=== PATIENT | male | born 1960 | race Caucasian/White ===

== ENCOUNTER 2024-05-18 14:25 | Inpatient (IN) | payer MEDICARE, MEDICAID ==
[~2024-05-18] VITALS: Ht 172.7 cm; Wt 70.3 kg
[~2024-05-18 14:25] MED LIST: AMLO10TA80 PO
[2024-05-18 14:32] VITALS: O2SAT 99
[2024-05-18] MEDS: LACTATED RINGERS 1,000 ML IV SCH (15:12)
[2024-05-18] MEDS: MORPHINE SULFATE 4 MG/ML INJ (FOR IV/IM USE) IV ONE (15:12)
[2024-05-18 15:30] LABS: MEAN CORPUSCULAR HGB CONC 31.8 g/dL (31.0-37.0); MEAN CORPUSCULAR VOLUME 88.1 fL (80.0-94.0); MEAN PLATELET VOLUME 6.5 fl (7.4-10.4); PLATELET 381 x1000/uL (130-400); RED BLOOD CELL COUNT 2.84 mill/uL (4.7-6.1); WHITE BLOOD COUNT 14.2 x1000/uL (4.5-11.0)
[2024-05-18 15:33] LABS: CARBON DIOXIDE 22 mEq/L (21-32); CHLORIDE 104 mEq/L (98-107); POTASSIUM 3.8 mEq/L (3.5-5.1); SODIUM 133 mEq/L (136-145)
[2024-05-18 15:34] LABS: CALCIUM 8.3 mg/dL (8.7-10.4)
[2024-05-18 15:38] LABS: GLUCOSE 129 mg/dL (70-105)
[2024-05-18 15:39] LABS: CREATININE 1.4 mg/dL (0.6-1.3); UREA NITROGEN BLOOD 36 mg/dL (9-23)
[2024-05-18 15:40] LABS: ALANINE AMINOTRANSFERASE 18 IU/L (10-49); ALBUMIN 2.7 g/dL (3.2-4.8); ASPARTATE AMINOTRANSFERASE 25 IU/L (<34); DIFFERENTIAL COMMENT 1
[2024-05-18 15:41] LABS: BILIRUBIN TOTAL 0.3 mg/dL (0.1-1.0); PROTEIN TOTAL 6.5 g/dL (6.0-8.3)
[2024-05-18 16:43] LABS: PLATELET ESTIMATE NORMAL
[2024-05-18] MEDS ORDERED: CEFEPIME 2GM IN DEXT 5% 100ML IV ONE ×2 (17:00→17:30)
[2024-05-18] MEDS ORDERED: CEFEPIME 2GM/100ML 100 ML IV NR (17:00)
[2024-05-18] MEDS ORDERED: ENOXAPARIN 60MG/0.6ML SYR SUBCUT ONE (17:15)
[2024-05-18] MEDS ORDERED: CLONIDINE 0.1MG TABLET PO PRN (17:30)
[2024-05-18] MEDS ORDERED: IPRATROPIUM/ALBUTEROL 0.5-3(2.5)MG/3ML NEB HHN PRN (17:30)
[2024-05-18] MEDS ORDERED: GUAIFENESIN 200MG/10ML SUGAR FREE UDC PO PRN (17:30)
[2024-05-18] MEDS ORDERED: ACETAMINOPHEN 325MG TABLET PO PRN ×2 (17:30)
[2024-05-18] MEDS ORDERED: ONDANSETRON HCL 4MG/2ML INJ IV PRN (17:30)
[2024-05-18] MEDS ORDERED: DOCUSATE SODIUM 100MG CAPSULE PO PRN (17:30)
[2024-05-18] MEDS ORDERED: MAGNESIUM/ALUMINUM HYDROXIDE/SIMETHICONE 30ML UDC PO PRN (17:30)
[2024-05-18] MEDS ORDERED: DEXTROSE 50% WATER 50ML SYRINGE IV PRN (17:30)
[2024-05-18] MEDS ORDERED: NALOXONE HCL 0.4MG/ML VIAL IV PRN (18:00)
[2024-05-18] MEDS: ENOXAPARIN 60MG/0.6ML SYR SUBCUT SCH (18:00)
[2024-05-18 18:21] LABS: IRON 26 ug/dL (65-175)
[2024-05-18 18:24] LABS: TOTAL IRON BINDING CAPACITY 290 ug/dl (250-425)
[2024-05-18 18:47] LABS: INR 1.1; PARTIAL THROMBOPLASTIN TIME 32.5 sec (23.4-31.0); PROTHROMBIN TIME 12.3 sec (9.6-11.0)
[2024-05-18 19:03] LABS: LACTIC ACID 2.1 mmol/L (0.4-2.0)
[2024-05-18] MEDS: THIAMINE HCL 100MG TABLET PO SCH (19:45)
[2024-05-18] MEDS: INSULIN LISPRO 100 UNITS/ML SUBCUT SCH (19:45)
[2024-05-18] MEDS: BLOOD SUGAR DIAGNOSTIC STRIP TEST SCH (21:00)
[2024-05-18] MEDS: CEFEPIME 1GM/50ML 50 ML IV SCH (21:30)
[2024-05-18] MEDS: DEXT 5%/LACTATED RINGERS 1,000 ML IV SCH (22:00)
[2024-05-18] MEDS: FAMOTIDINE 20MG TABLET PO SCH (22:00)
[2024-05-18] MEDS: IOHEXOL-300 100 ML BOTTLE ONE (23:35)
[2024-05-19 03:19] LABS: CREATINE KINASE MB FRACTION < 0.5 ng/mL (0.5-3.6)
[2024-05-19 03:32] LABS: CREATINE KINASE < 15 IU/L (46-171); TROPONIN I HIGH SENSITIVITY < 4 ng/L (3.0-53)
[2024-05-19 03:50] VITALS: BP 114/68; PULSE 80; RESP 18; TEMP 36.696
[2024-05-19] MEDS ORDERED: AMLO10TA80 MT (04:43)
[2024-05-19] MEDS: ENOXAPARIN 60MG/0.6ML SYR SUBCUT SCH (05:34)
[2024-05-19 07:06] LABS: CREATINE KINASE MB FRACTION < 0.5 ng/mL (0.5-3.6)
[2024-05-19 07:12] LABS: CARBON DIOXIDE 22 mEq/L (21-32); CHLORIDE 106 mEq/L (98-107); POTASSIUM 4.4 mEq/L (3.5-5.1); SODIUM 134 mEq/L (136-145)
[2024-05-19 07:14] LABS: CALCIUM 8.4 mg/dL (8.7-10.4); CREATINE KINASE < 15 IU/L (46-171); TROPONIN I HIGH SENSITIVITY < 4 ng/L (3.0-53)
[2024-05-19 07:17] LABS: THYROID STIMULATING HORMONE 3.59 uIU/mL (0.55-4.78)
[2024-05-19 07:18] LABS: GLUCOSE 165 mg/dL (70-105)
[2024-05-19 07:19] LABS: LDL CHOLESTEROL 61 mg/dL (5-100); TRIGLYCERIDE 164 mg/dL (0-150); UREA NITROGEN BLOOD 33 mg/dL (9-23)
[2024-05-19 07:20] LABS: CHOLESTEROL 110 mg/dL (<200); HDL CHOLESTEROL < 20 mg/dL (>55)
[2024-05-19 07:21] LABS: PHOSPHORUS 4.7 mg/dL (2.5-4.9)
[2024-05-19 07:26] LABS: BASOPHILS % 0.2 % (0.0-2.0); EOSINOPHILS % 0.1 % (0.0-5.0); HEMATOCRIT. 23.2 % (42.0-52.0); HEMOGLOBIN. 7.4 g/dL (14.0-18.0); LYMPHOCYTES % 7.2 % (20.0-50.0); MEAN CORPUSCULAR VOLUME 87.5 fL (80.0-94.0); MEAN PLATELET VOLUME 6.8 fl (7.4-10.4); MONOCYTES % 6.5 % (2.0-8.0); PLATELET 407 x1000/uL (130-400); RED BLOOD CELL COUNT 2.65 mill/uL (4.7-6.1); RED CELL DISTRIBUTION WIDTH 15.4 % (11.6-14.6); WHITE BLOOD COUNT 16.8 x1000/uL (4.5-11.0)
[2024-05-19 08:00] VITALS: BP 123/66; PULSE 102; RESP 15; TEMP 37.00296; O2SAT 99
[2024-05-19] MEDS: MULTIVITAMINS,THER W-MINERALS TABLET PO SCH (09:39)
[2024-05-19] MEDS: FOLIC ACID 1MG TABLET PO SCH (09:39)
[2024-05-19] MEDS: AMLODIPINE 2.5MG TABLET PO SCH (09:39)
[2024-05-19] MEDS: FERROUS SULFATE 325MG TABLET PO SCH (09:40)
[2024-05-19] MEDS: MORPHINE SULFATE 2 MG/ML INJ (NOT FOR IM USE) IV PRN (09:40)
[2024-05-19 12:00] VITALS: BP 120/64; PULSE 97; RESP 17; TEMP 36.89184; O2SAT 100
[2024-05-19] MEDS: FAMOTIDINE 20MG TABLET PO SCH (14:33)
[2024-05-19 16:00] VITALS: BP 145/76; PULSE 94; RESP 17; TEMP 36.61404; O2SAT 100
[2024-05-19] MEDS: CEFEPIME 2GM/100ML 100 ML IV SCH (17:41)
[2024-05-19 20:00] VITALS: BP 111/72; PULSE 116; RESP 19; TEMP 36.6696; O2SAT 98
[2024-05-20] VITALS: BP 113/76; PULSE 100; RESP 18; TEMP 36.114; O2SAT 100
[2024-05-20 01:03] LABS: TROPONIN I HIGH SENSITIVITY 4 ng/L (3.0-53)
[2024-05-20 01:05] LABS: ALANINE AMINOTRANSFERASE 13 IU/L (10-49); ALBUMIN 2.4 g/dL (3.2-4.8); ASPARTATE AMINOTRANSFERASE 23 IU/L (<34); BILIRUBIN DIRECT 0.2 mg/dL (<=3.0); BILIRUBIN TOTAL 0.4 mg/dL (0.1-1.0); PROTEIN TOTAL 6.2 g/dL (6.0-8.3)
[2024-05-20 04:00] VITALS: BP 121/60; PULSE 100; RESP 18; TEMP 36.50292; O2SAT 100
[2024-05-20 07:24] LABS: BASOPHILS % 0.4 % (0.0-2.0); CHLORIDE 105 mEq/L (98-107); EOSINOPHILS % 0.2 % (0.0-5.0); HEMATOCRIT. 24.3 % (42.0-52.0); HEMOGLOBIN. 8.1 g/dL (14.0-18.0); LYMPHOCYTES % 11.4 % (20.0-50.0); MEAN CORPUSCULAR HEMOGLOBIN 28.4 pg (28.0-32.0); MEAN CORPUSCULAR HGB CONC 33.3 g/dL (31.0-37.0); MEAN CORPUSCULAR VOLUME 85.4 fL (80.0-94.0); MEAN PLATELET VOLUME 6.6 fl (7.4-10.4); MONOCYTES % 6.3 % (2.0-8.0); NEUTROPHILS % 81.7 % (40.0-76.0); PLATELET 447 x1000/uL (130-400); POTASSIUM 3.8 mEq/L (3.5-5.1); RED BLOOD CELL COUNT 2.84 mill/uL (4.7-6.1); SODIUM 136 mEq/L (136-145); WHITE BLOOD COUNT 12.1 x1000/uL (4.5-11.0)
[2024-05-20 07:25] LABS: CALCIUM 8.1 mg/dL (8.7-10.4); CARBON DIOXIDE 24 mEq/L (21-32)
[2024-05-20 07:30] LABS: CREATININE 0.8 mg/dL (0.6-1.3); GLUCOSE 204 mg/dL (70-105); UREA NITROGEN BLOOD 20 mg/dL (9-23)
[2024-05-20 08:00] VITALS: BP 121/52; PULSE 102; RESP 18; TEMP 37.11408; O2SAT 99
[2024-05-20 12:00] VITALS: BP 142/77; PULSE 98; RESP 18; TEMP 36.50292; O2SAT 98
[2024-05-20 16:00] VITALS: BP 160/90; PULSE 107; RESP 18; TEMP 37.11408; O2SAT 98
[2024-05-20 20:00] VITALS: BP 158/80; PULSE 114; RESP 19; TEMP 36.6696; O2SAT 99
[2024-05-21] VITALS: BP 160/80; TEMP 36.61404; O2SAT 19
[2024-05-21 04:00] VITALS: BP 159/79; PULSE 88; RESP 19; TEMP 37.00296; O2SAT 99
[2024-05-21 08:00] VITALS: BP 160/85; PULSE 111; RESP 18; TEMP 36.9474; O2SAT 98
[2024-05-21 12:00] VITALS: BP 160/78; PULSE 107; RESP 18; TEMP 37.11408; O2SAT 98
[2024-05-21] MEDS ORDERED: MORPHINE SULFATE 2 MG/ML INJ (NOT FOR IM USE) IV PRN (12:15)
[2024-05-21] MEDS ORDERED: LACTULOSE 20G/30ML UDC PO PRN (12:15)
[2024-05-21] MEDS: MORPHINE SULFATE 2 MG/ML INJ (NOT FOR IM USE) IV PRN (13:43)
[2024-05-21] MEDS ORDERED: AMLODIPINE 5MG TABLET PO SCH (15:30)
[2024-05-21 16:00] VITALS: BP 146/72; PULSE 106; RESP 18; TEMP 36.50292; O2SAT 99
[2024-05-21] MEDS: CEFEPIME 2GM/100ML 100 ML IV SCH (17:33)
[2024-05-21] MEDS: MEGESTROL ACETATE 400 MG/10 ML UDC PO SCH (17:38)
[2024-05-21] MEDS: DEXT 5%/0.9% NACL 1,000 ML IV SCH (17:39)
[2024-05-21 19:00] LABS: CLARITY URINE CLEAR (CLEAR); COLOR URINE YELLOW (YELLOW); GLUCOSE URINE NEGATIVE (NEGATIVE); KETONES URINE NEGATIVE (NEGATIVE); LEUKOCYTE ESTERASE URINE 2+ (NEGATIVE); NITRITE URINE NEGATIVE (NEGATIVE); OCCULT BLOOD URINE TRACE (NEGATIVE); PROTEIN URINE 1+ (NEGATIVE); SPECIFIC GRAVITY URINE 1.016 (1.005-1.030)
[2024-05-21 19:31] LABS: RBC URINE 0-2 /hpf (0-2)
[2024-05-21 19:35] LABS: BACTERIA URINE TRACE; SQUAMOUS EPITHELIAL CELL URINE FEW /lpf (RARE/1+)
[2024-05-21 20:00] VITALS: BP 165/79; PULSE 110; RESP 18; TEMP 37.66968; O2SAT 100
[2024-05-22] VITALS: BP 145/72; PULSE 113; RESP 20; TEMP 36.22512; O2SAT 99
[2024-05-22 04:00] VITALS: BP 143/79; PULSE 101; RESP 18; TEMP 36.55848; O2SAT 98
[2024-05-22 07:00] LABS: CHLORIDE 109 mEq/L (98-107); POTASSIUM 3.9 mEq/L (3.5-5.1); SODIUM 137 mEq/L (136-145)
[2024-05-22 07:01] LABS: CARBON DIOXIDE 24 mEq/L (21-32)
[2024-05-22 07:06] LABS: CREATININE 0.7 mg/dL (0.6-1.3); GLUCOSE 183 mg/dL (70-105); UREA NITROGEN BLOOD 21 mg/dL (9-23)
[2024-05-22 07:07] LABS: BASOPHILS % 0.2 % (0.0-2.0); EOSINOPHILS % 0.6 % (0.0-5.0); HEMATOCRIT. 24.8 % (42.0-52.0); HEMOGLOBIN. 8.1 g/dL (14.0-18.0); LYMPHOCYTES % 13.2 % (20.0-50.0); MEAN CORPUSCULAR HEMOGLOBIN 28.1 pg (28.0-32.0); MEAN CORPUSCULAR HGB CONC 32.7 g/dL (31.0-37.0); MEAN CORPUSCULAR VOLUME 85.8 fL (80.0-94.0); MEAN PLATELET VOLUME 6.4 fl (7.4-10.4); MONOCYTES % 9.6 % (2.0-8.0); NEUTROPHILS % 76.4 % (40.0-76.0); PLATELET 407 x1000/uL (130-400); RED BLOOD CELL COUNT 2.89 mill/uL (4.7-6.1); RED CELL DISTRIBUTION WIDTH 15.3 % (11.6-14.6); WHITE BLOOD COUNT 10.4 x1000/uL (4.5-11.0)
[2024-05-22 08:00] VITALS: BP 150/74; PULSE 100; RESP 20; TEMP 37.05852; O2SAT 100
[2024-05-22] MEDS: AMLODIPINE 5MG TABLET PO SCH (09:00)
[2024-05-22] MEDS: VANCOMYCIN 1.25GM/250ML IV SCH (09:24)
[2024-05-22 12:00] VITALS: BP 146/71; PULSE 76; RESP 18; TEMP 36.44736; O2SAT 98
[2024-05-22 16:00] VITALS: BP 148/74; PULSE 102; RESP 18; TEMP 37.55856; O2SAT 100
[2024-05-22 20:00] VITALS: BP 151/72; PULSE 110; RESP 20; TEMP 36.3918; O2SAT 99
[2024-05-22] MEDS ORDERED: VANCOMYCIN 750MG PREMIX 150 ML IV SCH (21:00)
[2024-05-23] VITALS: BP 157/79; PULSE 117; RESP 19; TEMP 37.28076; O2SAT 99
[2024-05-23 04:00] VITALS: BP 154/77; PULSE 111; RESP 20; TEMP 36.89184; O2SAT 97
[2024-05-23 07:16] LABS: CARBON DIOXIDE 23 mEq/L (21-32); CHLORIDE 107 mEq/L (98-107); POTASSIUM 3.9 mEq/L (3.5-5.1); SODIUM 135 mEq/L (136-145)
[2024-05-23 07:17] LABS: CALCIUM 8.4 mg/dL (8.7-10.4)
[2024-05-23 07:18] LABS: BASOPHILS % 0.2 % (0.0-2.0); EOSINOPHILS % 0.8 % (0.0-5.0); HEMATOCRIT. 25.2 % (42.0-52.0); HEMOGLOBIN. 8.2 g/dL (14.0-18.0); LYMPHOCYTES % 11.2 % (20.0-50.0); MEAN CORPUSCULAR HEMOGLOBIN 27.9 pg (28.0-32.0); MEAN CORPUSCULAR HGB CONC 32.3 g/dL (31.0-37.0); MEAN CORPUSCULAR VOLUME 86.3 fL (80.0-94.0); MEAN PLATELET VOLUME 6.4 fl (7.4-10.4); MONOCYTES % 8.4 % (2.0-8.0); NEUTROPHILS % 79.4 % (40.0-76.0); PLATELET 394 x1000/uL (130-400); RED BLOOD CELL COUNT 2.92 mill/uL (4.7-6.1); WHITE BLOOD COUNT 10.9 x1000/uL (4.5-11.0)
[2024-05-23 07:21] LABS: CREATININE 0.7 mg/dL (0.6-1.3)
[2024-05-23 07:22] LABS: GLUCOSE 213 mg/dL (70-105); UREA NITROGEN BLOOD 21 mg/dL (9-23)
[2024-05-23 07:23] LABS: ALANINE AMINOTRANSFERASE 17 IU/L (10-49); ALBUMIN 2.5 g/dL (3.2-4.8); ASPARTATE AMINOTRANSFERASE 22 IU/L (<34)
[2024-05-23 07:24] LABS: BILIRUBIN TOTAL 0.5 mg/dL (0.1-1.0); PROTEIN TOTAL 7.1 g/dL (6.0-8.3)
[2024-05-23 07:39] LABS: FOLIC ACID (FOLATE) SERUM 4.93 ng/mL (>5.38); VITAMIN B12 SERUM 266 pg/mL (211-911)
[2024-05-23 07:41] LABS: FERRITIN > 1650 ng/mL (22-322)
[2024-05-23 08:00] VITALS: BP 148/75; PULSE 102; RESP 18; TEMP 36.44736; O2SAT 98
[2024-05-23 12:24] VITALS: BP 124/68; PULSE 98; RESP 18; TEMP 37.2252; O2SAT 98
[2024-05-23 16:03] VITALS: BP 144/74; PULSE 108; RESP 18; TEMP 37.11408; O2SAT 98
[2024-05-23 20:00] VITALS: BP 147/72; PULSE 108; RESP 20; TEMP 37.72524; O2SAT 97
[2024-05-23] MEDS: DOCUSATE SODIUM 100MG CAPSULE PO SCH (21:55)
[2024-05-24] VITALS: BP 148/74; PULSE 111; RESP 19; TEMP 35.89176; O2SAT 98
[2024-05-24 04:00] VITALS: BP 153/68; PULSE 116; RESP 17; TEMP 36.55848; O2SAT 98
[2024-05-24 08:00] VITALS: BP 125/63; PULSE 130; RESP 20; TEMP 38.72532; O2SAT 97
[2024-05-24] MEDS ORDERED: MULTIVITAMINS,THER W-MINERALS TABLET PO SCH (09:00)
[2024-05-24] MEDS: ENOXAPARIN 80MG/0.8ML SYR SUBCUT SCH (10:11)
[2024-05-24 10:23] LABS: HEMATOCRIT. 23.1 % (42.0-52.0); HEMOGLOBIN. 7.5 g/dL (14.0-18.0); MEAN CORPUSCULAR HEMOGLOBIN 27.9 pg (28.0-32.0); MEAN CORPUSCULAR HGB CONC 32.4 g/dL (31.0-37.0); MEAN CORPUSCULAR VOLUME 86.2 fL (80.0-94.0); MEAN PLATELET VOLUME 6.5 fl (7.4-10.4); PLATELET 381 x1000/uL (130-400); RED BLOOD CELL COUNT 2.67 mill/uL (4.7-6.1); RED CELL DISTRIBUTION WIDTH 15.3 % (11.6-14.6); WHITE BLOOD COUNT 21.4 x1000/uL (4.5-11.0)
[2024-05-24 10:31] LABS: CHLORIDE 108 mEq/L (98-107); POTASSIUM 3.5 mEq/L (3.5-5.1); SODIUM 136 mEq/L (136-145)
[2024-05-24 10:32] LABS: CARBON DIOXIDE 21 mEq/L (21-32)
[2024-05-24 10:33] LABS: CALCIUM 8.2 mg/dL (8.7-10.4)
[2024-05-24 10:36] LABS: DIFFERENTIAL COMMENT 1
[2024-05-24 10:37] LABS: CREATININE 0.8 mg/dL (0.6-1.3); GLUCOSE 200 mg/dL (70-105)
[2024-05-24 10:38] LABS: UREA NITROGEN BLOOD 25 mg/dL (9-23)
[2024-05-24 11:43] LABS: ANISOCYTOSIS 1+; PLATELET ESTIMATE NORMAL
[2024-05-24 12:00] VITALS: BP 116/56; PULSE 106; RESP 18; TEMP 36.44736; O2SAT 98
[2024-05-24 15:00] LABS: CLARITY URINE CLOUDY (CLEAR); COLOR URINE DARK YELLOW (YELLOW); GLUCOSE URINE NEGATIVE (NEGATIVE); KETONES URINE TRACE (NEGATIVE); LEUKOCYTE ESTERASE URINE 1+ (NEGATIVE); NITRITE URINE NEGATIVE (NEGATIVE); OCCULT BLOOD URINE 1+ (NEGATIVE); PH URINE 5.5 (4.5-8.0); PROTEIN URINE 2+ (NEGATIVE); SPECIFIC GRAVITY URINE 1.019 (1.005-1.030)
[2024-05-24 15:30] LABS: BACTERIA URINE 1+; RBC URINE 0-2 /hpf (0-2); SQUAMOUS EPITHELIAL CELL URINE NONE SEEN /lpf (RARE/1+); YEAST URINE NONE SEEN
[2024-05-24 16:00] VITALS: BP 130/72; PULSE 103; RESP 18; TEMP 36.9474; O2SAT 100
[2024-05-24] MEDS: PIPERACILLIN/TAZO 3.375G/50ML 50 ML IV SCH (16:21)
[2024-05-24] MEDS: VANCOMYCIN 1.25GM/250ML IV NR (19:51)
[2024-05-24 20:00] VITALS: BP 139/64; PULSE 110; RESP 20; TEMP 36.78072; O2SAT 99
[2024-05-24] MEDS: INSULIN LISPRO 100 UNITS/ML SUBCUT NR (23:58)
[2024-05-25] VITALS: BP 136/59; PULSE 122; RESP 18; TEMP 36.55848; O2SAT 98
[2024-05-25 04:00] VITALS: BP 144/69; PULSE 120; RESP 20; TEMP 36.33624; O2SAT 99
[2024-05-25] MEDS: VANCOMYCIN 750MG/150ML (BAXTER) IV SCH (05:17)
[2024-05-25 08:00] VITALS: BP 135/65; PULSE 109; RESP 18; TEMP 36.44736; O2SAT 97
[2024-05-25 08:19] LABS: CHLORIDE 109 mEq/L (98-107); POTASSIUM 3.6 mEq/L (3.5-5.1); SODIUM 138 mEq/L (136-145)
[2024-05-25 08:20] LABS: CARBON DIOXIDE 23 mEq/L (21-32)
[2024-05-25 08:21] LABS: CALCIUM 8.2 mg/dL (8.7-10.4)
[2024-05-25 08:25] LABS: BASOPHILS % 0.3 % (0.0-2.0); CREATININE 0.7 mg/dL (0.6-1.3); EOSINOPHILS % 0.5 % (0.0-5.0); GLUCOSE 179 mg/dL (70-105); HEMATOCRIT. 21.9 % (42.0-52.0); HEMOGLOBIN. 7.1 g/dL (14.0-18.0); LYMPHOCYTES % 12.5 % (20.0-50.0); MEAN CORPUSCULAR HGB CONC 32.5 g/dL (31.0-37.0); MEAN CORPUSCULAR VOLUME 86.2 fL (80.0-94.0); MEAN PLATELET VOLUME 6.9 fl (7.4-10.4); MONOCYTES % 5.4 % (2.0-8.0); NEUTROPHILS % 81.3 % (40.0-76.0); PLATELET 362 x1000/uL (130-400); RED BLOOD CELL COUNT 2.54 mill/uL (4.7-6.1); RED CELL DISTRIBUTION WIDTH 15.4 % (11.6-14.6); WHITE BLOOD COUNT 14.7 x1000/uL (4.5-11.0)
[2024-05-25 08:26] LABS: UREA NITROGEN BLOOD 28 mg/dL (9-23)
[2024-05-25 08:28] LABS: PHOSPHORUS 2.5 mg/dL (2.5-4.9)
[2024-05-25 12:00] VITALS: BP 123/66; PULSE 98; RESP 20; TEMP 35.89176; O2SAT 99
[2024-05-25 13:18] VITALS: BP 122/86; PULSE 97; TEMP 97.8
[2024-05-25] MEDS ORDERED: LANTUSUD SUBCUT (13:47)
[2024-05-25] MEDS ORDERED: LACT10SO7 PO (13:47)
[2024-05-25] MEDS ORDERED: AMLO5TAB88 PO (13:47)
[2024-05-25] MEDS ORDERED: TOPUD PO (13:47)
[2024-05-25] MEDS ORDERED: FERR-63 PO (13:47)
[2024-05-25] MEDS ORDERED: MEGE400O46 PO (13:47)
[2024-05-25] MEDS ORDERED: MULT-1146 PO (13:47)
[2024-05-25] MEDS ORDERED: FAMO20TA8 PO (13:47)
[2024-05-25] MEDS ORDERED: THIA100T72 PO (13:47)
[2024-05-25] MEDS ORDERED: BLOO-1812 MC (13:48)
[2024-05-25 16:00] VITALS: BP 131/75; PULSE 95; RESP 18; TEMP 36.55848; O2SAT 100
[2024-05-26] MEDS ORDERED: INSULIN GLARGINE 100 UNITS/ML SUBCUT SCH (10:00)
== END 2024-05-25 18:00 | disposition hospice, home (50) | DRG 871 ==
LOC: ER 14:25 → EDBEDREQTM 18:11 → EDBEDREQ 18:11 → 8WST 05-19 01:18
PROVIDERS: ADMIT Internal Medicine; ATTEND Internal Medicine
DX: A41.9 Sepsis, unspecified organism (principal); N17.0 Acute kidney failure with tubular necrosis; C78.7 Secondary malignant neoplasm of liver and intrahepatic bile duct; I82.3 Embolism and thrombosis of renal vein; E87.1 Hypo-osmolality and hyponatremia; N12 Tubulo-interstitial nephritis, not specified as acute or chronic; L02.818 Cutaneous abscess of other sites; D64.9 Anemia, unspecified; E27.8 Other specified disorders of adrenal gland; E11.9 Type 2 diabetes mellitus without complications; N28.89 Other specified disorders of kidney and ureter; E61.1 Iron deficiency; R13.10 Dysphagia, unspecified; R74.8 Abnormal levels of other serum enzymes; I10 Essential (primary) hypertension; K59.00 Constipation, unspecified; Z79.4 Long term (current) use of insulin; Z85.528 Personal history of other malignant neoplasm of kidney; Z79.899 Other long term (current) drug therapy; Z88.8 Allergy status to other drugs, medicaments and biological substances
CPT/HCPCS: 36415; 71045; 74018; 74177; 80048; 80053; 80061; 80076; 81003; 82105; 82550; 82553; 82607; 82728; 82746; 82962; 83036; 83540; 83550; 83605; 83735; 84100; 84145; 84439; 84443; 84484; 85025; 85044; 86850; 86900; 92610; 93970; 97162; 97166; 99291; C1893; J0692; J1650; J1815; J2270; J2543; J3370; J7042; Q9967